=== PATIENT | male | born 1945 | race Caucasian/White ===

== ENCOUNTER 2024-02-15 15:00 | Emergency (ER) | payer MEDICARE ==
[2024-02-15 15:22] VITALS: TEMP 97.9
[2024-02-15] MEDS: Hydromorphone 1 mg/ml Injection IM ONE ×2 (15:33→16:57)
[2024-02-15] MEDS ORDERED: Hydromorphone 1 mg/ml Injection ONE ×2 (15:33→16:56)
[2024-02-15 17:04] VITALS: RESP 20
--- NOTE | 2024-02-15 17:10 | XRAY ---
Indication: Right low back pain. Multiple contiguous axial images obtained through the lumbar spine. Sagittal and coronal reformatted images obtained. Comparison: None Osseous structures demineralized demonstrates with patient's age. Mild/moderate L1-S1 degenerative disc disease as evidenced by broad-based disc osteophyte complex and vacuum disc phenomena. Same levels also demonstrates mild/moderate bilateral degenerative facet hypertrophy greatest at L5-S1. Incidental 1 cm L4 superior endplate subcortical cyst and small L1-L2 Schmorl nodes. Sagittal and coronal reformatted images demonstrates normal lumbar lordosis with a minimal dextroscoliosis centered at L3. Also multilevel disc space loss greatest at L3-L4 level. No acute fracture, suspicious bony lesions, or spinal canal stenosis. Visualized noncontrasted soft tissues demonstrates mild aortic calcifications. Impression: Chronic findings including osteopenia, multilevel degenerative disc disease, L4 subcortical cyst, L1-L2 Schmorl nodes, scoliosis, and arteriosclerotic disease. No acute findings.
[2024-02-15] MEDS ORDERED: Norflex 60 MG/2 ML ONE (17:32)
[2024-02-15] MEDS: Norflex 60 MG/2 ML IM ONE (17:33)
--- NOTE | 2024-02-15 17:57 | ERPHSYRPT ---
- History of Present Illness Time Seen by Provider: 02/15/24 15:19 Source: patient, family Exam Limitations: no limitations Patient Subjective Stated Complaint: pt states he seen Tabby yesterday and got a shot. pt states Tabby increased his oxycodone. pt states increased pain to RLE Triage Nursing Assessment: pt ambulated into the er with assist of cane; pt is axo x4; pt is screaming out and yelling; pt states 10/10 pain to rt hip and RLE; no deformity or rotation to RLE; no bruising present; pt denies fall or injury; skin PDW; vitals wnl; no respiratory distress present Physician History: 78 years old male with history of atrial fibrillation with a watchman implant, chronic back pain with multiple surgeries presented in the ER for the last few days history of increasing pain radiating from right lower back to the lower leg, sharp shooting, aggravated with movements, activity and partial relief with parenteral pain medications. Patient was evaluated at [facility] ER, was given a pain shot and was recommended outpatient follow-up with primary care. Patient has followed up with PCP and she has increased the dose of oxycodone to 7.5 every 6 hour and given some pain shot but still pain has not improved. Patient is advised to be seen in the ER. He has no numbness tingling or weakness of right lower extremities, no saddle anesthesia, no loss of bowel or bladder control. Pain is more in the right hip/back area. Reports having similar symptoms usually on the left side. Allergies/Adverse Reactions: No Known Drug Allergies Allergy (Unverified 02/15/24 15:08) Home Medications: Allopurinol 100 mg [Zyloprim 100 mg] 100 mg PO DAILY 02/15/24 [History] Atorvastatin Calcium 20 mg PO DAILY 02/15/24 [History] Latanoprost [Xalatan] 1 drop OP DAILY 02/15/24 [History] Metoprolol Succinate 25 mg Xl* [Toprol-Xl 25MG Tablets] 12.5 mg PO DAILY 02/15/24 [History] Oxycodone HCl/Acetaminophen [Oxycodone-Acetaminophn 7.5-325] 1 tab PO Q6HPRN PRN 02/15/24 [History] Prednisone 20 mg [Deltasone 20 mg] 40 mg PO DAILY 02/15/24 [History] Tamsulosin HCl 0.4 mg [Flomax 0.4 MG] 0.4 mg PO DAILY 02/15/24 [History] Hx Tetanus, Diphtheria Vaccination/Date Given: Yes Hx Influenza Vaccination/Date Given: No Hx Pneumococcal Vaccination/Date Given: Yes Immunizations Up to Date: No Travel Risk - International Travel Have you traveled outside of the country in past 3 weeks: No - Emerging Infectious Disease Are you exhibiting symptoms associated with any current EIDs: No - Review of Systems Constitutional: No Symptoms Ears, Nose, & Throat: No Symptoms Respiratory: No Symptoms Cardiac: No Symptoms Abdominal/Gastrointestinal: No Symptoms Musculoskeletal: Back Pain Skin: No Symptoms Neurological: No Symptoms - Past Medical History Neurological History: No Pertinent History Cardiac History: Arrhythmia, High Cholesterol, Hypertension Respiratory History: No Pertinent History Endocrine Medical History: No Pertinent History Musculoskeletal History: Osteoarthritis Other Medical History: PMHX: GOUT, RIGHT TKR 11/2015, ATRIAL FIB, HX OF 2 BACK SURGERIES "TOOK RUPTURED DISCS OUT". INGUINAL HERNIA REPAIR - Past Surgical History Past Surgical History: Yes Musculoskeletal: Orthopedic Surgery Other Surgical History: lower back. sandra knees. watchman - Social History Smoking Status: Smoker, status unknown Exposure to second hand smoke: Yes Drug Use: none - Social Determinants of Health Will the patient participate in the screening: Yes Do you worry about a steady place to live?: No Do you have any problems with any of the following?: No known problems In the past 12 months,have you had to go without utilities?: No Transportation Issues: No Has anyone in your support network made you feel unsafe?: No Have you or anyone in your house had to go without enough: No - Nursing Vital Signs Nursing Vital Signs: Initial Vital Signs Temperature 97.9 F 02/15/24 15:10 Pulse Rate 89 02/15/24 15:10 Respiratory Rate 24 02/15/24 15:10 Blood Pressure 142/90 02/15/24 15:10 O2 Sat by Pulse Oximetry 98 02/15/24 15:10 Pain Scale Pain Intensity [Left Hip] 10 Pain Intensity 6 - Physical Exam General Appearance: no apparent distress Eye Exam: PERRL/EOMI Neck Exam: normal inspection, full range of motion Respiratory Exam: normal breath sounds, lungs clear Cardiovascular Exam: regular rate/rhythm, normal heart sounds Gastrointestinal Exam: soft, normal bowel sounds, No tenderness Back Exam: normal inspection, decreased range of motion, muscle spasm, point tenderness (Right sacroiliac/hip area soft tissue tenderness) Extremity Exam: normal inspection, normal range of motion, pelvis stable Neurologic Exam: alert, oriented x 3, cooperative, sensation nml, No nml station & gait (With a cane), No motor deficits Skin Exam: normal color SpO2 Interpretation: normal SpO2: 98 O2 Delivery: Room Air Ordered Tests: Active Orders 24 hr Category Date Time Status LUMBAR SPINE W/O [CT] Stat Exams 02/15/24 15:31 Completed Medication Summary Discontinued Medications Generic Name Dose Route Start Last Admin Trade Name Adyq PRN Reason Stop Dose Admin Hydromorphone HCl 1 mg 02/15/24 15:31 02/15/24 15:33 Hydromorphone 1 Mg/1ml Inj IM 02/15/24 15:32 1 mg STAT ONE Administration Hydromorphone HCl Confirm 02/15/24 15:33 Hydromorphone 1 Mg/1ml Inj Administered 02/15/24 15:34 Dose 1 mg .ROUTE .STK-MED ONE Hydromorphone HCl 1 mg 02/15/24 16:53 02/15/24 16:57 Hydromorphone 1 Mg/1ml Inj IM 02/15/24 16:54 1 mg STAT ONE Administration Hydromorphone HCl Confirm 02/15/24 16:56 Hydromorphone 1 Mg/1ml Inj Administered 02/15/24 16:57 Dose 1 mg .ROUTE .STK-MED ONE Orphenadrine Citrate Confirm 02/15/24 17:32 Orphenadrine Citrate 60 Mg/2 Ml Vial Administered 02/15/24 17:33 Dose 60 mg .ROUTE .STK-MED ONE Orphenadrine Citrate 60 mg 02/15/24 17:33 02/15/24 17:33 Orphenadrine Citrate 60 Mg/2 Ml Vial IM 02/15/24 17:34 60 mg STAT ONE Administration - Progress Progress: improved, pain not gone completely, re-examined Progress Note: 02/15/24 17:54 78 years old with history of chronic back pain with multiple surgeries is evaluated in the ER for worsening back pain for the last few days. Patient has been seen in the ER and primary care. Has no midline tenderness, some tenderness in the right sacroiliac area and right hip area. No pain in the hip joint itself. Patient is able to ambulate in the ER with cane without any other assistance. No saddle anesthesia, no other cauda equina symptoms. Given shots of Dilaudid times two 1 mg each along with Norflex, reevaluation his pain is better but not completely resolved. I have obtained CT lumbar spine which showed old degenerative changes but no acute fracture or subluxation. I believe patient has sciatica and would add some muscle relaxant to current pain medications. Patient is advised to continue with oxy and outpatient follow-up. Discussed signs symptoms of worsening needing return to ER which patient/daughter seem understanding. Stable for discharge. Counseled pt/family regarding: diagnosis, need for follow-up, rad results Medical Desision Making - Independent Historian Additional History obtained from: Child - Diagnostic Testing Diagnostic test were ordered, analyzed, and reviewed by me: Yes Radiological Interpretation: Reviewed by me - Risk of complications The pt has a mod risk of morbidity or mortality based on: Need for prescription drug management - Departure Departure Disposition: Home Clinical Impression: Right sided sciatica Condition: Stable Critical Care Time: No Referrals: CINDI TONG NP [Primary Care Provider] - Follow up/PCP as directed Instructions: Sciatica ED Additional Instructions: Continue with your current pain medications. Follow-up with your primary care and may need referral for pain management/back surgery for further evaluation. Return to ER for intractable pain, numbness weakness of lower extremities/saddle anesthesia, loss of bowel or bladder control etc. Prescriptions: Cyclobenzaprine HCl 10 mg [Flexeril 10 MG] 10 mg PO TID PRN 7 Days #15 tablet PRN Reason: Pain
[2024-02-15 18:48] VITALS: BP 149/86; PULSE 84; O2SAT 97
== END 2024-02-15 18:48 | disposition home or self-care (01) ==
LOC: ED 15:00
DX: M54.31 Sciatica, right side (principal); E78.5 Hyperlipidemia, unspecified; I10 Essential (primary) hypertension; Z79.891 Long term (current) use of opiate analgesic; Z79.52 Long term (current) use of systemic steroids; Z79.899 Other long term (current) drug therapy
CPT/HCPCS: 72131; 96372; 99284; J1171; J2360

== ENCOUNTER 2024-03-13 14:35 | Day surgery (SDC) | payer MEDICARE ==
[2024-03-13] MEDS ORDERED: SUBLIMAZE 100 MCG/2 ML ONE (16:14)
[2024-03-13] MEDS ORDERED: propofoL IV ONE (16:14)
--- NOTE | 2024-03-13 16:52 | XRAY ---
Indication: Right L4-S1 transforaminal EMILI. Intraoperative fluoroscopy provided for 42 seconds. 5 digital spot image submitted for interpretation demonstrates posterior needle tips projecting over expected right L4 and L5 nerve roots. Small amount of contrast injected for needle tip placement. Correlate with intraoperative findings/report.
--- NOTE | 2024-03-13 16:55 | XRAY ---
42 seconds of fluoroscopy was used in surgery for a right L4-S1 transforaminal EMILI.
== END 2024-03-13 17:00 | disposition home or self-care (01) ==
LOC: SDC-PAIN 14:35
PROVIDERS: ATTEND Psychiatry & Neurology Pain Medicine
DX: M54.16 Radiculopathy, lumbar region (principal)
CPT/HCPCS: 72100; 77003; J2704; J3010